=== PATIENT | male | born 1980 | race Caucasian/White ===

== ENCOUNTER 2018-06-25 17:05 | Emergency (ER) | payer SELFPAY ==
[~2018-06-25] VITALS: Ht 188 cm; Wt 90.7 kg
[2018-06-25] MEDS ORDERED: KETOROLAC 30 MG/ML VIAL. IM ONE (18:15)
--- NOTE | 2018-06-25 18:20 | PHYS DOC ---
Past Medical History Past Medical History: Anxiety, Other Additional Past Medical Histor: CHRONIC BACK SPASMS Past Surgical History: Other Additional Past Surgical Histo: FOOT Additional Information: 0.25 PPD Alcohol Use: None Drug Use: None Adult General Chief Complaint Chief Complaint: ANKLE PROBLEM HPI HPI Patient is a 38-year-old male who presents after walking down a flight of stairs and tripping and turning his ankle this morning. Patient describes the pain is 9 out of 10 throbbing and burning. He denies any associated symptoms. Patient states he is not taking any medicine all day for the pain. Review of Systems Review of Systems Constitutional: Denies fever or chills [] Eyes: Denies change in visual acuity, redness, or eye pain [] HENT: Denies nasal congestion or sore throat [] Respiratory: Denies cough or shortness of breath [] Cardiovascular: No additional information not addressed in HPI [] GI: Denies abdominal pain, nausea, vomiting, bloody stools or diarrhea [] : Denies dysuria or hematuria [] Musculoskeletal: Denies back pain but Reports L ankle pain. Integument: Denies rash or skin lesions [] Neurologic: Denies headache, focal weakness or sensory changes [] Endocrine: Denies polyuria or polydipsia [] Complete systems were reviewed and found to be within normal limits, except as documented in this note. Current Medications Current Medications Current Medications Medications (Trade) Dose Ordered Sig/[facility] Start Time Stop Time Status Last Admin Dose Admin Ketorolac Tromethamine (Toradol 30mg Vial) 30 mg 1X ONCE 06/25/18 18:15 06/25/18 18:16 DC 06/25/18 18:38 30 MG Allergies Allergies Allergies Coded Allergies Type Severity Reaction Last Updated Verified No Known Drug Allergies 06/25/18 No Physical Exam Physical Exam Constitutional: Well developed, well nourished, no acute distress, non-toxic appearance. [] HENT: Normocephalic, atraumatic, bilateral external ears normal, oropharynx moist, no oral exudates, nose normal. [] Eyes: PERRLA, EOMI, conjunctiva normal, no discharge. [] Neck: Normal range of motion, no tenderness, supple, no stridor. [] Cardiovascular:Heart rate regular rhythm, no murmur [] Lungs & Thorax: Bilateral breath sounds clear to auscultation [] Abdomen: Bowel sounds normal, soft, no tenderness, no masses, no pulsatile masses. [] Skin: Warm, dry, no erythema, no rash. [] Back: No tenderness, no CVA tenderness. [] Extremities: No tenderness except to the L ankle, no cyanosis, no clubbing, ROM intact, edema to the L ankle. [] Neurologic: Alert and oriented X 3, normal motor function, normal sensory function, no focal deficits noted. [] Psychologic: Affect normal, judgement normal, mood normal. [] Current Patient Data Vital Signs Vital Signs Date Time Temp Pulse Resp B/P (MAP) Pulse Ox O2 Delivery O2 Flow Rate FiO2 06/25/18 17:39 98.2 92 16 128/84 (99) 100 Room Air 98.2 EKG EKG [] Radiology/Procedures Radiology/Procedures []PATIENT: FADUMO SHARMAOUNT: [id number]#: [id number] : 1980 LOCATION: ER AGE: 38 SEX: M EXAM STATUS: REG ER ORD. PHYSICIAN: KEVIN MAYORGA APRN REASON: trauma PROCEDURE: ANKLE LEFT 3V EXAM: Left ankle, 3 views. HISTORY: Trauma. COMPARISON: None. FINDINGS: 3 views of the left ankle are obtained. There is a displaced fracture of the inferior tip of the medial malleolus. There is associated medial predominant ankle soft tissue swelling. No osteochondral lesion is seen. There is slight enthesopathy at the Achilles tendon insertion. IMPRESSION: 1. Mildly displaced fracture of the inferior medial malleolus. 2. Medial predominant left ankle soft tissue swelling. Electronically signed by: Bambi Montero MD (06/25/2018 6:40 PM) [facility] Course & Med Decision Making Course & Med Decision Making Pertinent Labs and Imaging studies reviewed. (See chart for details) Discussed symptoms with patient. Will obtain xray and give pain medication. Patient is agreeable. patient has mildly displaced fx of inferior medial malleolus. will have follow up with ortho. Will d/c home with pain medication and nausea medication. Will place in posterior ankle stirrup. Dragon Disclaimer Dragon Disclaimer This electronic medical record was generated, in whole or in part, using a voice recognition dictation system. Departure Departure Impression: Primary Impression: Fractured medial malleolus Disposition: HOME, SELF-CARE Condition: STABLE Referrals: NO PCP (PCP) ADRIÁN MEJIA II, MD Patient Instructions: Ankle Fracture Additional Instructions: Please follow up with Dr. Mejia as soon as possible. Take [place] as directed for pain and ibuprofen per label instructions. Wear splint. Scripts Ondansetron (ONDANSETRON ODT) 4 Mg Tab.rapdis 1 TAB PO PRN Q6-8HRS, #16 TAB Prov: KEVIN MAYORGA APRN 06/25/18 Hydrocodone/Apap 5-325 (NORCO 5-325 TABLET) 1 Each Tablet 1 TAB PO PRN Q6HRS PRN for PAIN, #10 TAB 0 Refills Prov: KEVIN MAYORGA APRN 06/25/18 Problem Qualifiers Primary Impression: Fractured medial malleolus Encounter type: initial encounter Fracture type: closed Fracture alignment: displaced Laterality: left Qualified Codes: S82.52XA - Displaced fracture of medial malleolus of left tibia, initial encounter for closed fracture KEVIN MAYORGA APRN June 25, 2018 18:20
--- NOTE | 2018-06-25 18:43 | RAD ---
EXAM: Left ankle, 3 views. HISTORY: Trauma. COMPARISON: None. FINDINGS: 3 views of the left ankle are obtained. There is a displaced fracture of the inferior tip of the medial malleolus. There is associated medial predominant ankle soft tissue swelling. No osteochondral lesion is seen. There is slight enthesopathy at the Achilles tendon insertion. IMPRESSION: 1. Mildly displaced fracture of the inferior medial malleolus. 2. Medial predominant left ankle soft tissue swelling. Electronically signed by: Bambi Montero MD (06/25/2018 6:40 PM) [facility]
[2018-06-25] MEDS ORDERED: ONDA4TAB12 PO (19:10)
[2018-06-25] MEDS ORDERED: HYDR-3164 PO (19:10)
[2018-06-25 19:39] VITALS: BP 136/74
== END 2018-06-25 19:39 | disposition home or self-care (01) ==
LOC: ER 17:05
DX: S82.52XA Displaced fracture of medial malleolus of left tibia, initial encounter for closed fracture (principal); F41.9 Anxiety disorder, unspecified; F17.200 Nicotine dependence, unspecified, uncomplicated; W18.49XA Other slipping, tripping and stumbling without falling, initial encounter; Y93.01 Activity, walking, marching and hiking; Y92.89 Other specified places as the place of occurrence of the external cause; Y99.8 Other external cause status
CPT/HCPCS: 29515; 73610; 96372; 99284; J1885; 29125